=== PATIENT | female | born 1930 | race Hispanic/Latino ===

== ENCOUNTER → 2018-11-29 | Outpatient (CLI) | payer MEDICARE, OTHER ==
--- NOTE | 2018-11-29 15:24 | Diagnostic Imaging Report ---
EXAMINATION: PA and lateral views of the chest. COMPARISON: None CLINICAL HISTORY: Bronchopneumonia DISCUSSION: Lungs are well-inflated. Patchy airspace disease in the lingula. Calcified granuloma in the right middle lobe. No pleural effusion or pneumothorax. Atherosclerotic calcification of the thoracic aorta. Normal heart size without pulmonary edema. No acute osseous abnormality. Degenerative changes of the thoracic spine. IMPRESSION: Patchy airspace disease in the lingula may be partially attributable to prominent epicardial fat. However, pneumonia is an additional consideration and follow-up chest radiograph in 6-8 weeks is suggested to document stability or resolution. Signed by: Dr. Zach De La Rosa M.D. on 11/29/2018 3:20 PM
== END ==
LOC: RAD 14:32
PROVIDERS: ATTEND Family Medicine
DX: J18.0 Bronchopneumonia, unspecified organism (principal)
CPT/HCPCS: 71046

== ENCOUNTER → 2019-01-11 | Outpatient (CLI) | payer MEDICARE, OTHER ==
--- NOTE | 2019-01-11 17:02 | Diagnostic Imaging Report ---
EXAMINATION: PA and lateral views of the chest. COMPARISON: 11/29/2018 CLINICAL HISTORY: Pneumonia DISCUSSION: Lungs remain well-inflated. Calcified right middle lobe granuloma unchanged. Hazy opacity along the lingula is also unchanged and presumably represents prominent epicardial fat. No new consolidation or effusion. Stable cardiomediastinal contour. No acute osseous abnormality. Degenerative changes of the thoracic spine. IMPRESSION: Unchanged lingular hazy opacity, likely prominent epicardial fat. No new consolidation. Signed by: Dr. Zach De La Rosa M.D. on 01/11/2019 4:59 PM
== END ==
LOC: RAD 16:02
PROVIDERS: ATTEND Family Medicine
DX: J18.9 Pneumonia, unspecified organism (principal)
CPT/HCPCS: 71046

== ENCOUNTER → 2020-11-02 | Outpatient (CLI) | payer MEDICARE, OTHER | LOC: MRI 13:26 | PROVIDERS: ATTEND Family Medicine | DX: M54.5 Low back pain (principal); M54.30 Sciatica, unspecified side | CPT/HCPCS: 72148 ==